=== PATIENT | female | born 1955 | race Caucasian/White ===

== ENCOUNTER 2020-09-08 13:30 | Inpatient (IN) | payer OTHER, BC ==
--- NOTE | 2020-09-08 14:31 | RAD REPORT ---
EXAM DESCRIPTION: RAD - Chest Single View - 09/08/2020 2:22 pm CLINICAL HISTORY: CHEST PAIN COMPARISON: None TECHNIQUE: AP portable chest image was obtained 09/08/2020 2:22 pm . FINDINGS: Lungs are clear. Heart and vasculature are normal. No measurable pleural effusion and no p neumothorax. No acute bony abnormality seen. No acute aortic findings suspected. IMPRESSION: No acute cardiopulmonary process.
[2020-09-08 14:33] LABS: Absolute Lymphocytes (CBC) 1.1 K/uL (0.7-4.9); Basophils % 0.3 % (0-1.3); Hematocrit 41.4 % (36.0-45.0); Lymphocytes % 11.9 % (15.3-44.8); RBC Red Blood Cell Count 4.52 M/uL (3.86-4.86)
[2020-09-08] MEDS ORDERED: NA CHLORIDE 0.9% 1,000 ML ONE (14:55)
[2020-09-08] MEDS ORDERED: ONDANSETRON 4 MG/2 ML VIAL ONE ×2 (14:55→16:04)
[2020-09-08] MEDS ORDERED: DIAZEPAM 10 MG/2 ML INJ SYRINGE ONE (14:55)
[2020-09-08] MEDS ORDERED: FAMOTIDINE 20 MG/2 ML VIAL IV ONE (14:55)
[2020-09-08 14:56] LABS: ALT/SGPT 29 U/L (12-78); Albumin 3.8 g/dL (3.4-5.0); Alkaline Phosphatase 58 U/L (45-117); BUN Blood Urea Nitrogen 22 mg/dL (7-18); Bicarbonate 25 mmol/L (21-32); Bilirubin Direct < 0.1 mg/dL (0-0.2); Bilirubin Total 0.4 mg/dL (0.2-1.0); Glucose Level 141 mg/dL (74-106); NT PRO-BNP 484 pg/mL (<125); Protein, Total 7.6 g/dL (6.4-8.2); Sodium Level 138 mmol/L (136-145); Troponin (Emerg Dept Use Only) 0.13 ng/mL (0.0-0.045)
[2020-09-08 14:58] LABS: AST/SGOT 22 U/L (15-37); Magnesium 2.1 mg/dL (1.8-2.4); Potassium 4.3 mmol/L (3.5-5.1)
[2020-09-08 15:09] LABS: Lipase 115 U/L (73-393)
--- NOTE | 2020-09-08 15:23 | RAD REPORT ---
EXAM DESCRIPTION: CT - Head Brain Wo Cont - 09/08/2020 3:04 pm CLINICAL HISTORY: DIZZINESS COMPARISON: No comparisons TECHNIQUE: Axial 5 mm thick images of the head were obtained without IV contrast. All CT scans are performed using dose optimization technique as appropriate and may include automated exposure control or mA/KV adjustment according to patient size. FINDINGS: No intracranial hemorrhage, mass, edema or shift of mid-line structures. No acute infarcti on changes seen. No abnormal extra-axial fluid collections. Ventricles are normal. Prominent perivas cular space noted on the left. Mastoid air cells and visualized portions of the paranasal sinuses are clear. No globe or orbital co ntent abnormality. No acute bony findings. IMPRESSION: Negative non-contrast CT head examination.
[2020-09-08] MEDS ORDERED: MECLIZINE HCL 12.5 MG TAB ONE (16:03)
[2020-09-08] MEDS ORDERED: MORPHINE 2 MG/ML SYR ONE (16:03)
[2020-09-08] MEDS ORDERED: ASPIRIN 81 MG CHEWABLE TABLET ONE (16:03)
[2020-09-08 16:07] LABS: Blood Morphology Comment NOT SEEN (NOT SEEN); Platelet Estimate ADEQ; White Blood Cell Scan OK (OK)
--- NOTE | 2020-09-08 16:41 | ER ---
Nurse's Notes [facility] Name: Suzanne Anaya Age: 65 yrs Sex: Female : 1955 Arrival Date: 09/08/2020 Time: 13:34 Bed 25 Private MD: Diagnosis: Subsequent non-ST elevation (NSTEMI) myocardial infarction;Dizziness and giddiness Presentation: 09/08 13:44 Chief complaint: Patient states: i am so dizzy and i am throwing up. and my chest tw2 hurts. started 2 hours ago. Coronavirus screen: nausea, vomiting. Client presents with at least one sign or symptom that may indicate coronavirus-19. Standard/surgical mask placed on the client. Provider contacted for isolation considerations. Ebola Screen: Patient denies travel to an Ebola-affected area in the 21 days before illness onset. Initial Sepsis Screen: Does the patient meet any 2 criteria? No. Patient's initial sepsis screen is negative. Does the patient have a suspected source of infection? No. Patient's initial sepsis screen is negative. Risk Assessment: Do you want to hurt yourself or someone else? Patient reports no desire to harm self or others. Onset of symptoms was September 08, 2020. 13:44 Method Of Arrival: Wheelchair tw2 13:44 Acuity: ALFREDO 3 tw2 Triage Assessment: 13:46 General: Appears uncomfortable, Behavior is calm, cooperative, appropriate for age. tw2 Pain: Complains of pain in chest. Cardiovascular: Reports chest pain. GI: Reports nausea. Historical: - Allergies: 13:46 No Known Allergies; tw2 - Immunization history:: Client reports receiving the 2nd dose of the Covid vaccine. - Social history:: Smoking status: Reported history of juuling and/or vaping. Screenin:53 Abuse screen: Denies threats or abuse. Nutritional screening: No deficits noted. tw2 Tuberculosis screening: No symptoms or risk factors identified. Fall Risk Secondary diagnosis (15 points) c/o dizziness. Assessment: 13:53 Neuro: Reports dizziness. GI: Pt is actively vomiting. tw2 14:50 General: Appears uncomfortable, Behavior is calm, cooperative, appropriate for age. tr6 Pain: Complains of pain in midsternal CP. Neuro: Reports dizziness. Cardiovascular: Reports chest pain. Respiratory: No deficits noted. : No deficits noted. EENT: No deficits noted. Derm: No deficits noted. Musculoskeletal: No deficits noted. 18:43 Reassessment: Patient and/or family updated on plan of care and expected duration. Pain ap3 level reassessed. Patient is alert, oriented x 3, equal unlabored respirations, skin warm/dry/pink. patient provided with a sandwich, chip and water. Vital Signs: 13:44 BP 159 / 92; Pulse 56; Resp 17; Temp 97.9(O); Pulse Ox 98% on R/A; tw2 14:40 BP 148 / 77; Pulse 48; Resp 18; Pulse Ox 98% on R/A; tr6 15:27 BP 119 / 58; Pulse 50; Pulse Ox 100% on R/A; ap3 15:48 Weight 74.84 kg; ap3 18:44 BP 118 / 73; Pulse 52; Resp 12; Pulse Ox 100% on R/A; ap3 20:02 BP 129 / 74; Pulse 68; Resp 19; Pulse Ox 98% on R/A; ap3 ED Course: 13:34 Patient arrived in ED. mr 13:45 Triage completed. tw2 13:45 Arm band placed on. tw2 13:47 Natanael Valdivia PA is PHCP. cp 13:47 Natanael Haney MD is Attending Physician. cp 13:54 Bed in low position. Call light in reach. Adult w/ patient. pt in Exam room 11 at this tw2 time. 14:22 Kareen Bruno, RN is Primary Nurse. tr6 14:22 XRAY Chest (1 view) In Process Unspecified. EDMS 14:32 Inserted saline lock: 20 gauge in left wrist, using aseptic technique. Blood collected. iw 15:04 CT Head Brain wo Cont In Process Unspecified. EDMS 16:25 Brain Wo Cont In Process Unspecified. EDMS 16:41 Santo Granados is Hospitalizing Provider. cp 20:25 No provider procedures requiring assistance completed. Patient admitted, IV remains in ap3 place. Administered Medications: 14:45 Drug: NS 0.9% 500 ml Route: IV; Rate: bolus; Site: right hand; zb 21:29 Follow up: IV Status: Completed infusion ap3 14:45 Drug: Diazepam 2 mg Route: IVP; Site: left hand; zb 15:49 Follow up: Response: No adverse reaction ap3 14:46 Drug: Zofran (Ondansetron) 4 mg Route: IVP; Site: left hand; zb 15:49 Follow up: Response: No adverse reaction ap3 14:46 Drug: Pepcid (famotidine) 20 mg Route: IVP; Site: left hand; zb 15:50 Follow up: Response: No adverse reaction ap3 14:46 Drug: NS 0.9% 500 ml Route: IV; Rate: 125 ml/hr; Site: left hand; zb 21:29 Follow up: IV Status: Infusion continued upon admission ap3 15:48 Drug: Aspirin Chewable Tablet 324 mg Route: PO; ap3 17:57 Follow up: Response: No adverse reaction ap3 15:48 Drug: Meclizine 25 mg Route: PO; ap3 17:57 Follow up: Response: No adverse reaction ap3 15:48 Drug: Zofran (Ondansetron) 4 mg Route: IVP; Site: left antecubital; ap3 17:57 Follow up: Response: No adverse reaction ap3 16:42 Drug: Lovenox (enoxaparin) 1 mg/kg Route: Sub-Q; Site: abdomen; ap3 17:57 Follow up: Response: No adverse reaction ap3 16:42 Drug: morphine 2 mg Route: IVP; Site: left hand; ap3 17:57 Follow up: Response: Pain is decreased ap3 Outcome: 16:41 Decision to Hospitalize by Provider. cp 20:25 Admitted to Med/surg accompanied by tech, via stretcher, room 221, with chart, Report ap3 called to YURI Dozier 20:25 Condition: good 20:25 Discharge instructions given to patient, Instructed on the need for admit, Demonstrated understanding of instructions. 21:28 Patient left the ED. ap3 Signatures: Dispatcher [facility] EDTN GarciaSuzanne mr Mirella Rodriguez RN Natanael Manriquez PA PA cp Sabrina Miller RN RN tw2 Raisa Nobles RN RN ap3 Elva Olivares RN RN zb Kareen Bruno RN RN tr6 Corrections: (The following items were deleted from the chart) 14:45 14:45 Diazepam 2 mg IVP in right hand zb zb
--- NOTE | 2020-09-08 16:41 | EDPHYS ---
Physician Documentation [facility] Name: Suzanne Anaya Age: 65 yrs Sex: Female : 1955 Arrival Date: 09/08/2020 Time: 13:34 Bed 25 Private MD: NELSON Physician Natanael Haney HPI: 09/08 13:55 This 65 yrs old Female presents to ER via Wheelchair with complaints of cp Vomiting, Nausea, Chest Tightness. 13:55 The patient or guardian reports chest pain that is located primarily in the anterior cp chest wall, bilaterally. 13:55 Onset: 2 hour(s) ago. The patient presents to the emergency department with nausea, cp with "dry heaves", vomiting, that is continuous. Onset: The symptoms/episode began/occurred suddenly. Possible causes: unknown. The patient presents with dizziness, feeling faint, lightheadedness, sense of spinning. Associated signs and symptoms: Pertinent negatives: abdominal pain, combativeness, confusion, shortness of breath, syncope. Historical: - Allergies: 13:46 No Known Allergies; tw2 - Immunization history:: Client reports receiving the 2nd dose of the Covid vaccine. - Social history:: Smoking status: Reported history of juuling and/or vaping. ROS: 14:00 Constitutional: Negative for body aches, chills, fever, poor PO intake. cp 14:00 Eyes: Positive for blurry vision, Negative for pain, redness, vision loss. cp 14:00 ENT: Negative for ear pain, sore throat, difficulty swallowing, difficulty handling secretions. 14:00 Cardiovascular: Positive for chest pain, Negative for edema, palpitations. 14:00 Respiratory: Negative for cough, shortness of breath, wheezing. 14:00 Abdomen/GI: Positive for nausea and vomiting, Negative for abdominal pain, diarrhea, constipation, hematemesis, black/tarry stool, rectal bleeding. 14:00 Back: Negative for radiated pain. 14:00 Skin: Negative for rash. 14:00 Neuro: Positive for dizziness, Negative for altered mental status, headache, numbness, syncope, weakness. 14:00 All other systems are negative. Exam: 14:05 Constitutional: The patient appears alert, awake, non-diaphoretic, non-toxic, well cp developed, well nourished, in obvious distress, mildly distressed. 14:05 Head/Face: Normocephalic, atraumatic. cp 14:05 Eyes: Periorbital structures: appear normal, Pupils: equal, round, and reactive to light and accomodation, Extraocular movements: intact throughout, Conjunctiva: normal, no exudate, no injection, Sclera: no appreciated abnormality, Lids and lashes: appear normal, bilaterally. 14:05 ENT: External ear(s): are unremarkable, Ear canal(s): are normal, clear, TM's: bulging, is not appreciated, bilaterally, dullness, bilaterally, erythema, is not appreciated, bilaterally, Nose: is normal, Mouth: is normal, Posterior pharynx: Airway: no evidence of obstruction, patent. 14:05 Neck: ROM/movement: is normal, is supple, without pain, no range of motions limitations, no meningismus. 14:05 Chest/axilla: Inspection: normal, Palpation: is normal, no crepitus, no tenderness. 14:05 Cardiovascular: Rate: bradycardic, Rhythm: regular, Heart sounds: murmur, not appreciated, Edema: is not appreciated, JVD: is not appreciated. 14:05 Respiratory: the patient does not display signs of respiratory distress, Respirations: normal, no use of accessory muscles, no retractions, labored breathing, is not present, Breath sounds: are clear throughout, no decreased breath sounds, no stridor, no wheezing. 14:05 Abdomen/GI: Inspection: abdomen appears normal, Bowel sounds: active, all quadrants, Palpation: abdomen is soft and non-tender, in all quadrants. 14:05 Back: pain, is absent, ROM is normal. 14:05 Neuro: Orientation: to person, place \\T\\ time. Mentation: is normal, Cerebellar function: Romberg testing is negative, normal finger to nose testing, Motor: moves all fours, strength is normal, Sensation: is normal. 14:18 ECG was reviewed by the Attending Physician. cp Vital Signs: 13:44 BP 159 / 92; Pulse 56; Resp 17; Temp 97.9(O); Pulse Ox 98% on R/A; tw2 14:40 BP 148 / 77; Pulse 48; Resp 18; Pulse Ox 98% on R/A; tr6 15:27 BP 119 / 58; Pulse 50; Pulse Ox 100% on R/A; ap3 15:48 Weight 74.84 kg; ap3 18:44 BP 118 / 73; Pulse 52; Resp 12; Pulse Ox 100% on R/A; ap3 20:02 BP 129 / 74; Pulse 68; Resp 19; Pulse Ox 98% on R/A; ap3 MDM: 14:00 Differential diagnosis: abnormal EKG, acute myocardial infarction, gastritis, cp cholecystitis, viral gastroenteritis, gastroenteritis, pancreatitis, pulmonary embolus, stable angina, CVA. 14:05 Patient medically screened. 16:45 Physician consultation: Santo Granados was contacted at 16:30, regarding admission, to the telemetry unit. patient's condition. 17:00 Data reviewed: vital signs, nurses notes, lab test result(s), EKG, radiologic studies, cp CT scan, MRI, plain films. 17:00 The patient was given aspirin in the Emergency Department. Test interpretation: by ED cp physician or midlevel provider: ECG, plain radiologic studies. Counseling: I had a detailed discussion with the patient and/or guardian regarding: the historical points, exam findings, and any diagnostic results supporting the discharge/admit diagnosis, lab results, the need for further work-up and treatment in the hospital. 09/08 13:47 Order name: Basic Metabolic Panel; Complete Time: 15:30 tw2 09/08 13:47 Order name: CBC with Diff; Complete Time: 16:38 tw2 09/08 13:47 Order name: LFT's; Complete Time: 15:30 tw2 09/08 13:47 Order name: Magnesium; Complete Time: 15:30 tw2 09/08 13:47 Order name: NT PRO-BNP; Complete Time: 15:30 tw2 09/08 13:47 Order name: PT-INR; Complete Time: 15:30 tw2 09/08 13:47 Order name: Troponin (emerg Dept Use Only); Complete Time: 15:30 tw2 09/08 13:53 Order name: Lipase 09/08 14:25 Order name: Glucose, Ancillary Testing; Complete Time: 15:30 EDMS 09/08 15:03 Order name: Lipase; Complete Time: 15:30 EDMS 09/08 16:07 Order name: CBC Smear Scan; Complete Time: 16:38 EDMS 09/08 18:28 Order name: SARS-COV-2 RT PCR EDMS 09/08 13:47 Order name: XRAY Chest (1 view); Complete Time: 15:30 tw2 09/08 13:47 Order name: EKG; Complete Time: 13:48 tw2 09/08 13:47 Order name: Cardiac monitoring; Complete Time: 14:26 tw2 09/08 13:53 Order name: CT Head Brain wo Cont; Complete Time: 15:30 09/08 15:54 Order name: Brain Wo Cont; Complete Time: 17:00 EDMS 09/08 17:00 Interpretation: Report reviewed. 09/08 13:47 Order name: EKG - Nurse/Tech; Complete Time: 14:25 tw2 09/08 13:47 Order name: IV Saline Lock; Complete Time: 14:25 tw2 09/08 13:47 Order name: Labs collected and sent; Complete Time: 14:25 tw2 09/08 13:47 Order name: O2 Per Protocol; Complete Time: 13:53 tw2 09/08 13:47 Order name: O2 Sat Monitoring; Complete Time: 13:53 tw2 EC:18 Rate is 55 beats/min. Rhythm is regular. OH interval is normal. QRS interval is normal. cp QT interval is normal. T waves are Inverted in leads aVL, V3. Interpreted by me. Reviewed by me. Administered Medications: 14:45 Drug: NS 0.9% 500 ml Route: IV; Rate: bolus; Site: right hand; zb 21:29 Follow up: IV Status: Completed infusion ap3 14:45 Drug: Diazepam 2 mg Route: IVP; Site: left hand; zb 15:49 Follow up: Response: No adverse reaction ap3 14:46 Drug: Zofran (Ondansetron) 4 mg Route: IVP; Site: left hand; zb 15:49 Follow up: Response: No adverse reaction ap3 14:46 Drug: Pepcid (famotidine) 20 mg Route: IVP; Site: left hand; zb 15:50 Follow up: Response: No adverse reaction ap3 14:46 Drug: NS 0.9% 500 ml Route: IV; Rate: 125 ml/hr; Site: left hand; zb 21:29 Follow up: IV Status: Infusion continued upon admission ap3 15:48 Drug: Aspirin Chewable Tablet 324 mg Route: PO; ap3 17:57 Follow up: Response: No adverse reaction ap3 15:48 Drug: Meclizine 25 mg Route: PO; ap3 17:57 Follow up: Response: No adverse reaction ap3 15:48 Drug: Zofran (Ondansetron) 4 mg Route: IVP; Site: left antecubital; ap3 17:57 Follow up: Response: No adverse reaction ap3 16:42 Drug: Lovenox (enoxaparin) 1 mg/kg Route: Sub-Q; Site: abdomen; ap3 17:57 Follow up: Response: No adverse reaction ap3 16:42 Drug: morphine 2 mg Route: IVP; Site: left hand; ap3 17:57 Follow up: Response: Pain is decreased ap3 Disposition: 17:15 Chart complete. cp Disposition Summary: 09/08/20 16:41 Hospitalization Ordered Hospitalization Status: Inpatient Admission cp Provider: Santo Granados cp Location: Telemetry/MedSurg (Inpatient) cp Condition: Stable cp Problem: new cp Symptoms: have improved cp Bed/Room Type: Standard cp Room Assignment: 221(09/08/20 20:07) mw Diagnosis - Subsequent non-ST elevation (NSTEMI) myocardial infarction cp - Dizziness and giddiness cp Forms: - Medication Reconciliation Form cp - SBAR form cp Addendum: 09/11/2020 06:49 Co-signature as Attending Physician, Natanael Haney MD I agree with the assessment and c oleary plan of care. Signatures: Dispatcher [employer] EDMS Brandie Craft RN RN mw Anderson, Corey, MD MD cha Page, Corey, PA PA cp Sabrina Miller RN RN tw2 Raisa Nobles RN RN ap3 Elva Olivares RN RN zb Corrections: (The following items were deleted from the chart) 09/08 15:04 13:54 Lipase ordered. EDMS EDMS 15:54 15:39 MR STROKE PROTOCOL+MRI.RAD.BRZ ordered. EDMS EDMS 17:35 15:38 CORONAVIRUS+MR.LAB.BRZ ordered. EDMS EDMS 20:07 16:41 cp mw
--- NOTE | 2020-09-08 16:52 | RAD REPORT ---
EXAM DESCRIPTION: MRI - Brain Wo Cont - 09/08/2020 4:26 pm CLINICAL HISTORY: DIZZINESS, visual changes, history of CVA COMPARISON: <Comparisons> TECHNIQUE: Sagittal T1-weighted images were obtained along with axial PD, heavily T2-weighted and T2 -FLAIR images. Axial DWI and ADC mapping sequences were also obtained along with coronal heavily T2-w eighted images. Coronal T2 hemo sequence obtained FINDINGS: No intracranial hemorrhage, mass or acute infarction. There is no edema or shift of midlin e structures. No extra-axial fluid collections. Alvarado-matter/white matter junction is preserved. Signa l voids are seen as a normal finding in the major intracranial vessels. No measurable atrophy or chronic ischemic changes seen. Ventricles are normal size. There is a normal wall perivascular space near the left basal ganglia. Mastoid air cells and paranasal sinuses are clear. No globe or orbital content abnormality. No sella or supra sella abnormality. IMPRESSION: Negative non-contrast MRI of the Brain for acute or emergent finding.
[2020-09-08] MEDS ORDERED: ENOXAPARIN 80 MG/0.8 ML SQ ONE (17:00)
--- NOTE | 2020-09-08 18:58 | P.HP ---
Certification for Inpatient Patient admitted to: Observation With expected LOS: <2 Midnights Practitioner: I am a practitioner with admitting privileges, knowledge of patient current condition, hospital course, and medical plan of care. Services: Services provided to patient in accordance with Admission requirements found in Title 42 Section 412.3 of the Code of Federal Regulations Patient History Date of Service: 09/08/20 Reason for admission: Vertigo, elevated troponin History of Present Illness: 65-year-old woman with a history of hypertension and hyperlipidemia presented to the emergency department with a complaint of sudden onset of vertigo. Patient reports experiencing severe vertigo which all care about she was washing her hair in the sink. It started when she lifted up her head from the sink, stated she almost fell, the room was spinning, symptoms associated with nausea and vomits. She stated she vomited a couple of times. She also had diplopia. Her initial troponin in the ED was mildly elevated. EKG demonstrated sinus rhythm with nonspecific ST-T changes. MRI of the brain done in the ED negative for acute CVA. Patient still with vertigo but stated it is better today than before. She is hospitalized for further evaluation and management. - Past Medical/Surgical History -: Hypertension -: Hyperlipidemia - Social History Smoking Status: Current every day smoker Alcohol use: No CD- Drugs: No Place of Residence: Home Review of Systems Other: Patient denies any headache. She endorsed mild chest pain. She denied any shortness of breath. She denied any limb weakness. Except as documented, all other systems reviewed and negative. Physical Examination - Physical Exam General: Alert, In no apparent distress, Oriented x3 HEENT: Mucous membr. moist/pink, EOMI (No nystagmus), Sclerae nonicteric Neck: 2+ carotid pulse no bruit, JVD not distended, No Thyromegaly Respiratory: Clear to auscultation bilaterally, Normal air movement Cardiovascular: No edema, Regular rate/rhythm, Normal S1 S2, No murmurs Capillary refill: <2 Seconds Gastrointestinal: Normal bowel sounds, Soft and benign, Non-distended, No t enderness Musculoskeletal: No swelling, No tenderness Integumentary: No rashes, No erythema Neurological: Normal speech, Normal strength at 5/5 x4 extr, Cranial nerves 3-12 intact, Normal reflexes 2+ Lymphatics: No axilla or inguinal lymphadenopathy - Studies Laboratory Data (last 24 hrs) 09/08/20 14:00: PT 11.5, INR 1.00 09/08/20 14:00: WBC 8.90, Hgb 13.7, Hct 41.4, Plt Count 224 09/08/20 14:00: Sodium 138, Potassium 4.3, BUN 22 H, Creatinine 0.73, Glucose 141 H, Magnesium 2.1, Total Bilirubin 0.4, AST 22, ALT 29, Alkaline Phosphatase 58, Lipase 115 09/08/20 13:53: Lipase Cancelled Assessment and Plan - Problems (Diagnosis) (1) Vertigo Current Visit: Yes Status: Acute (2) Elevated troponin Current Visit: Yes Status: Acute (3) Chest pain Current Visit: Yes Status: Acute (4) Hypertension Current Visit: Yes Status: Acute (5) Hyperlipidemia Current Visit: Yes Status: Acute - Plan Place under observation. Continue to trend troponin. I suspect benign positional vertigo given that her symptoms were precipitated by change in head position. MRI of the brain is negative for acute CVA. Obtain echocardiogram. Full-dose Lovenox depending on how troponin trend. Consult PT for vestibular rehab. Supportive measures with IV Ativan, meclizine, Pepcid. Antiemetics as needed. - Advance Directives Does patient have a Living Will: No Does patient have a Durable POA for Healthcare: No
[2020-09-08] MEDS ORDERED: LORazepam 2 MG/ML VIAL IV PRN (20:55)
[2020-09-08] MEDS ORDERED: NITROGLYCERIN 0.4 MG/TAB SL PRN (20:55)
[2020-09-08] MEDS: FAMOTIDINE 20 MG/2 ML VIAL IV SCH (21:39)
[2020-09-08] MEDS: NA CHLORIDE 0.9% 1,000 ML IV SCH (21:39)
[2020-09-08] MEDS: MECLIZINE HCL 12.5 MG TAB PO SCH (21:39)
[2020-09-08] MEDS: ONDANSETRON 4 MG/2 ML VIAL IV PRN (21:55)
[2020-09-08 23:21] VITALS: BMI 25.0
[2020-09-09 04:14] LABS: Basophils % 0.7 % (0-1.3); Lymphocytes % 26.6 % (15.3-44.8); RBC Red Blood Cell Count 3.63 M/uL (3.86-4.86)
[2020-09-09 04:25] LABS: Bilirubin Total 0.1 mg/dL (0.2-1.0); Magnesium 2.1 mg/dL (1.8-2.4); Potassium 3.6 mmol/L (3.5-5.1); Protein, Total 5.9 g/dL (6.4-8.2); Thyroid Stimulating Hormone 0.667 uIU/mL (0.360-3.740)
[2020-09-09] MEDS: ONDANSETRON 4 MG/2 ML VIAL IV PRN (04:35)
[2020-09-09] MEDS: NA CHLORIDE 0.9% 1,000 ML IV SCH ×2 (04:38→17:24)
[2020-09-09] MEDS ORDERED: PNEUMOCOCCAL VACCINE 0.5 ML IMVAC ONE (06:00)
[2020-09-09] MEDS: FAMOTIDINE 20 MG/2 ML VIAL IV SCH (08:14)
[2020-09-09] MEDS: MECLIZINE HCL 12.5 MG TAB PO SCH ×3 (08:15→20:44)
[2020-09-09] MEDS: ASPIRIN EC 81 MG TAB PO SCH (08:15)
[2020-09-09] MEDS ORDERED: ENOXAPARIN 40 MG/0.4 ML SQ SCH (09:00)
[2020-09-09] MEDS ORDERED: POTASSIUM CL SA 10 MEQ TAB PO ONE (09:00)
--- NOTE | 2020-09-09 16:07 | P.PN ---
Subjective Date of Service: 09/09/20 Chief Complaint: Vertigo, elevated troponin Patient states her vertigo is much better. She has no chest pain. Troponin trended up to 0.7. Physical Examination - Vital Signs Temperature: 97.6 F Blood Pressure: 120/57 Pulse: 56 Respirations: 18 Pulse Ox (%): 96 - Physical Exam General: Alert, In no apparent distress, Oriented x3 HEENT: Mucous membr. moist/pink Neck: JVD not distended Respiratory: Clear to auscultation bilaterally, Normal air movement Cardiovascular: No edema, Regular rate/rhythm, Normal S1 S2 Gastrointestinal: Soft and benign, Non-distended Musculoskeletal: No swelling Integumentary: No rashes Neurological: Normal strength at 5/5 x4 extr, Cranial nerves 3-12 intact - Studies Laboratory Data (last 24 hrs) 09/08/20 14:00: WBC 8.90, Hgb 13.7, Hct 41.4, Plt Count 224 Assessment And Plan - Current Problems (Diagnosis) (1) Vertigo Current Visit: Yes Status: Acute (2) Chest pain Current Visit: Yes Status: Acute (3) Hypertension Current Visit: Yes Status: Acute (4) Hyperlipidemia Current Visit: Yes Status: Acute (5) NSTEMI (non-ST elevated myocardial infarction) Current Visit: Yes Status: Acute - Plan Troponin trended up to 0.7. Case discussed with cardiology-Dr. Oliver. Patient diagnosed with NSTEMI. Start full-dose Lovenox, continue aspirin. Dr. Oliver plan to do cardiac catheterization on Friday. Obtain echocardiogram. I suspect benign positional vertigo given that her symptoms were precipitated by change in head position. MRI of the brain is negative for acute CVA. Vertigo improved Awaiting PT evaluation Continue supportive measures with IV Ativan, meclizine, Pepcid. Antiemetics as needed.
[2020-09-09] MEDS ORDERED: [UNRECOGNIZED DRUG - OTHER] PO SCH (16:15)
[2020-09-09] MEDS ORDERED: DIPHENHYDRAMINE 50 MG/ML VIAL IV ONE (17:07)
[2020-09-09] MEDS ORDERED: FAMOTIDINE 20 MG/2 ML VIAL IV ONE (18:00)
[2020-09-09 20:14] LABS: Urine Appearance CLEAR (Clear); Urine Bilirubin NEGATIVE (Negative); Urine Blood NEGATIVE (Negative); Urine Color YELLOW (Yellow); Urine Glucose NEGATIVE (Negative); Urine Protein NEGATIVE (Negative); Urine Urobilinogen 0.2 mg/dL (0.2-1.0)
[2020-09-09 20:42] LABS: Urine Microscopic Reflex NO UMIC
[2020-09-09] MEDS: [UNRECOGNIZED DRUG - OTHER] PO SCH (20:43)
[2020-09-09] MEDS: TRAZODONE 50 MG TABLET PO SCH (20:43)
[2020-09-09] MEDS: GABAPENTIN 300 MG CAP PO SCH (20:44)
[2020-09-09] MEDS: SERTRALINE HCL 100 MG TAB PO SCH (20:45)
[2020-09-09] MEDS: ATORVASTATIN 20 MG TAB PO SCH (20:45)
[2020-09-09] MEDS: ENOXAPARIN 80 MG/0.8 ML SQ SCH (20:50)
[2020-09-10] MEDS: NA CHLORIDE 0.9% 1,000 ML IV SCH ×3 (03:37→22:11)
[2020-09-10 06:53] LABS: Absolute Lymphocytes (CBC) 1.7 K/uL (0.7-4.9); Basophils % 0.6 % (0-1.3); Hematocrit 35.5 % (36.0-45.0); Lymphocytes % 33.4 % (15.3-44.8); MPV 7.9 fL (7.6-11.3); RBC Red Blood Cell Count 3.86 M/uL (3.86-4.86)
[2020-09-10 07:01] LABS: Potassium 3.8 mmol/L (3.5-5.1)
[2020-09-10] MEDS ORDERED: POTASSIUM CL SA 10 MEQ TAB PO ONE (09:00)
[2020-09-10] MEDS: MECLIZINE HCL 12.5 MG TAB PO SCH ×3 (09:00→20:34)
[2020-09-10] MEDS: ASPIRIN EC 81 MG TAB PO SCH (09:00)
[2020-09-10] MEDS: FAMOTIDINE 20 MG/2 ML VIAL IV SCH ×2 (09:01→20:33)
[2020-09-10] MEDS: ENOXAPARIN 80 MG/0.8 ML SQ SCH ×2 (09:01→20:33)
[2020-09-10] MEDS ORDERED: MINERAL OIL 30 ML UCUP PO ONE (13:00)
--- NOTE | 2020-09-10 15:07 | P.PN ---
Subjective Date of Service: 09/10/20 Chief Complaint: Vertigo, elevated troponin Patient still complaining of vertigo but states it is much better. She has no chest pain. Physical Examination - Vital Signs Temperature: 96.9 F Blood Pressure: 159/68 Pulse: 53 Respirations: 17 Pulse Ox (%): 97 - Physical Exam General: In no apparent distress, Oriented x3 HEENT: Mucous membr. moist/pink Neck: JVD not distended Respiratory: Clear to auscultation bilaterally, Normal air movement Cardiovascular: No edema, Regular rate/rhythm, Normal S1 S2 Gastrointestinal: Soft and benign, Non-distended, No tenderness Musculoskeletal: No swelling Integumentary: No rashes Neurological: Normal strength at 5/5 x4 extr Assessment And Plan - Current Problems (Diagnosis) (1) Vertigo Current Visit: Yes Status: Acute (2) Chest pain Current Visit: Yes Status: Acute (3) Hypertension Current Visit: Yes Status: Acute (4) Hyperlipidemia Current Visit: Yes Status: Acute (5) NSTEMI (non-ST elevated myocardial infarction) Current Visit: Yes Status: Acute - Plan Troponin trended up to 0.7. Patient diagnosed with NSTEMI. Hold evening Lovenox dose. continue aspirin. Dr. Oliver plan to do cardiac catheterization tomorrow Echocardiogram requested. I suspect benign positional vertigo given that her symptoms were precipitated by change in head position. Differential diagnosis include wax in ears and Meniere's disease MRI of the brain is negative for acute CVA. Vertigo improved Vestibular rehab Continue supportive measures with IV Ativan, meclizine, Pepcid. Antiemetics as needed.
--- NOTE | 2020-09-10 17:35 | CON ---
Date of Consultation: 09/10/2020 Reason For Consultation: Elevated troponin. History Of Present Illness: A 65-year-old female with long-standing history of smoking. No major me dical problems other than hypertension controlled with medication, dyslipidemia, presented after an e pisode of dizziness, nausea and vomiting with some chest pressure that has completely resolved. Sinc e admission to the hospital, she has been asymptomatic. She had a workup that ruled out a stroke as she had some vertigo symptoms as well; however, troponin was elevated at 0.7 and then trending down. Denies having any other complaints now. Past Medical History: As outlined above in HPI. Medications: Refer to reconciliation sheet for detailed list. Allergies: NO KNOWN DRUG ALLERGIES. Social History: She is active smoker. Does not drink or use drugs. Review of Systems: All systems reviewed were negative except for mentioned in the HPI. Physical Examination: Vital Signs: Temperature is 96.9, pulse 83, breathing at 17, blood pressure 159/68, saturating 97%. General: Pleasant middle-aged female, in no apparent distress. Head and Neck: Pupils are equal, reactive to light. Intact eye movements. No JVD. No cervical lym phadenopathy. Neck: Supple. Thyroid is not enlarged. Lungs: Clear to auscultation bilaterally. No rhonchi, rales, or crackles. No accessory muscle use. Heart: Regular rate and rhythm. No extra sounds. Abdomen: Soft, nontender. Bowel sounds positive. No organomegaly. No masses or hernia. No rigidi ty or rebound. Extremities: No edema, clubbing, or cyanosis. Intact pulses. Skin: No rash noted. Neurologic: Alert, awake, oriented x3. No acute focal deficits appreciated. Investigations: Troponin peaked at 0.72 and now 0.41. Creatinine 0.83 and hemoglobin is 12, white b lood cell count is 5000. Assessment And Recommendations: Non-ST elevation myocardial infarction. Keep n.p.o. past midnight f or coronary angiogram tomorrow morning. I discussed already the case with the hospitalist yesterday and the patient is fully anticoagulated with Lovenox. Please hold the Lovenox after the dose of jayce ght and can give her Lovenox in the morning tomorrow anticipating coronary angiogram early afternoon tomorrow. Continue aspirin 81 mg and high-dose statin. Please obtain echocardiogram. Thank you for the consult. /RANDOLPH Voice ID: [id number] Report ID: [id number]
[2020-09-10] MEDS: TRAZODONE 50 MG TABLET PO SCH (20:34)
[2020-09-10] MEDS: ATORVASTATIN 20 MG TAB PO SCH (20:34)
[2020-09-10] MEDS: SERTRALINE HCL 100 MG TAB PO SCH (20:34)
[2020-09-10] MEDS: GABAPENTIN 300 MG CAP PO SCH (20:34)
[2020-09-10] MEDS: [UNRECOGNIZED DRUG - OTHER] PO SCH (20:45)
[2020-09-11] MEDS ORDERED: ACETAMINOPHEN 325 MG TABLET PO PRN (04:46)
[2020-09-11 06:18] LABS: Potassium 3.8 mmol/L (3.5-5.1)
[2020-09-11] MEDS: ASPIRIN EC 81 MG TAB PO SCH (08:14)
[2020-09-11] MEDS: MECLIZINE HCL 12.5 MG TAB PO SCH ×2 (08:14→14:00)
[2020-09-11] MEDS: FAMOTIDINE 20 MG/2 ML VIAL IV SCH (08:16)
[2020-09-11] MEDS: NA CHLORIDE 0.9% 1,000 ML IV SCH (08:53)
[2020-09-11] MEDS ORDERED: lisinopriL 20 MG TAB PO SCH (09:00)
[2020-09-11] MEDS ORDERED: hydroCHLOROthiazide 12.5 MG CAP PO SCH (09:00)
[2020-09-11] MEDS ORDERED: POTASSIUM CL SA 10 MEQ TAB PO ONE (09:00)
[2020-09-11] MEDS ORDERED: LIDOCAINE 1% 20 ML MDV ONE (12:11)
[2020-09-11] MEDS ORDERED: HEPA 1000U/500MLS 2,000 UNIT/1,000 ML BAG IV ONE (12:11)
--- NOTE | 2020-09-11 14:17 | ECHO ---
HEIGHT: 5 ft 8 in WEIGHT: 165 lb 0 oz DATE OF STUDY: 09/11/[address]: michelle cherry 2-DIMENSIONAL: YES M.MODE: YES DOPPLER: YES COLOR FLOW: YES TDS: NO PORTABLE: NO DEFINITY: NO BUBBLE STUDY: NO DIAGNOSIS: ELEVATED TROPONIN CARDIAC HISTORY: CATHERIZATION: NO SURGERY: NO PROSTHETIC VALVE: NO PACEMAKER: NO MEASUREMENTS (cm) DIASTOLIC (NORMALS) SYSTOLIC (NORMALS) IVSd 1.1 (0.6-1.2) LA Diam 3.7 (1.9-4.0) LVEF 64% LVIDd 5.1 (3.5-5.7) LVIDs 3.3 (2.0-3.5) %FS 35% LVPWd 1.1 (0.6-1.2) Ao Diam 2.9 (2.0-3.7) 2 DIMENSIONAL ASSESSMENT: RIGHT ATRIUM: NORMAL LEFT ATRIUM: NORMAL RIGHT VENTRICLE: NORMAL LEFT VENTRICLE: NORMAL TRICUSPID VALVE: NORMAL MITRAL VALVE: NORMAL PULMONIC VALVE: NORMAL AORTIC VALVE: NORMAL PERICARDIAL EFFUSION: NONE AORTIC ROOT: NORMAL LEFT VENTRICULAR WALL MOTION: NORMAL DOPPLER/COLOR FLOW: NORMAL COMMENTS: NORMAL 2D ECHOCARDIOGRAM WITH DOPPLER. NO EFFUSION. NO WAL MOTION ABNORMALITY. TECHNOLOGIST: Anastasiia DAMON
[2020-09-11] MEDS ORDERED: NA CHLORIDE 0.9% 500 ML ONE (14:32)
[2020-09-11] MEDS ORDERED: VERAPAMIL HCL 10 MG/4 ML VIAL IV ONE (15:29)
[2020-09-11] MEDS ORDERED: FENTANYL CITR 100 MCG/2 ML ONE (15:29)
[2020-09-11] MEDS ORDERED: ASPIRIN 325 MG TAB ONE (15:29)
[2020-09-11] MEDS ORDERED: MIDAZOLAM HCL 2 MG/2 ML INJ ONE (15:29)
[2020-09-11] MEDS ORDERED: CLOPIDOGREL 75 MG TABLET ONE (15:30)
[2020-09-11] MEDS ORDERED: TICAGRELOR 90 MG TABLET PO ONE (15:30)
[2020-09-11] MEDS ORDERED: ATROPINE SULF 1 MG/10 ML SYR IV ONE (15:30)
[2020-09-11] MEDS ORDERED: HEPARIN 5000 UNIT/ML 1 ML VIAL ONE (15:30)
--- NOTE | 2020-09-11 16:48 | OP ---
Date of Procedure: 09/11/2020 Surgeon: RADHA MOSS Procedures Performed: 1.Selective coronary angiogram. 2.Left heart catheterization. Access: Right femoral artery 6-Venezuelan closed with 6-Venezuelan Angio-Seal. Complications: None. Bleeding: Less than 10 mL. Description Of Procedure: After risks, benefits, and alternatives were explained, the patient agreed to the procedure and signed informed consent. The patient was brought to the cardiac catheterizatio n laboratory, prepped and draped in usual sterile fashion. Then, I accessed right femoral artery usi ng ultrasound guidance and fluoroscopy and placed a 6-Venezuelan [place] sheath and took a 6-Venezuelan JL4 catheter into the aortic root, engaged left main. Then, I took standard views and exchanged for 6-Fr ench JR4 catheter, engaged the right coronary artery and took standard views, and then with the same catheter crossed the aortic valve over the wire and recorded LVEDP and upon pullback, there was no gr adient. I removed the catheter and sheath and placed a 6-V[place]an Angio-Seal for closure with good hem ostasis. Findings: 1.Left main is large and short with no disease. 2.LAD; oqjnrmyr-iz-aulds size with luminal irregularities in the proximal portion, otherwise no sign ificant disease. All the diagonals are patent. 3.Left circumflex; large, codominant circulation with luminal irregularities and the OM1 branch is a small vessel with ostial 30% to 40% stenosis. 4.RCA; moderate-sized vessel with diffuse proximal to mid calcified stenosis about 30% to 40% at max with LALITO-3 flow. Conclusion: 1.Mild nonobstructive coronary artery disease. 2.LVEDP of 24 mmHg. Recommendation: Medical management. SR/MODL Voice ID: [id number] Report ID: [id number]
[2020-09-11 18:17] VITALS: BP 157/72; TEMP 98.1; O2SAT 98
--- NOTE | 2020-09-11 18:23 | P.DS ---
Admission Date: 09/09/20 Discharge Date: 09/11/20 Disposition: ROUTINE DISCHARGE Discharge Condition: FAIR Reason for Admission: Vertigo, elevated troponin - Problems (1) Vertigo Current Visit: Yes Status: Acute (2) Chest pain Current Visit: Yes Status: Acute (3) Hypertension Current Visit: Yes Status: Acute (4) Hyperlipidemia Current Visit: Yes Status: Acute (5) NSTEMI (non-ST elevated myocardial infarction) Current Visit: Yes Status: Acute Brief History of Present Illness: 65-year-old woman with a history of hypertension and hyperlipidemia presented to the emergency department with a complaint of sudden onset of vertigo. Patient reports experiencing severe vertigo which all care about she was washing her hair in the sink. It started when she lifted up her head from the sink, stated she almost fell, the room was spinning, symptoms associated with nausea and vomits. She stated she vomited a couple of times. She also had diplopia. Her initial troponin in the ED was mildly elevated. EKG demonstrated sinus rhythm with nonspecific ST-T changes. MRI of the brain done in the ED negative for acute CVA. Patient still with vertigo but stated it is better today than before. She was hospitalized for further evaluation and management. Hospital Course: Patient admitted to the medical floor, troponin trended up to 0.7. He was diagnosed with NSTEMI and treated with full-dose Lovenox. Patient seen and evaluated by cardiology who recommended cardiac catheterization. Cardiac cath revealed moderate coronary artery disease, no percutaneous intervention. Patient had dizziness which was managed supportively with Ativan, meclizine and Pepcid. Her dizziness is suspected to be related to BPPV or ear wax. Patient is discharged with aspirin, statins. Her bradycardia limit beta-ed use. Vital Signs/Physical Exam: Temp Pulse Resp BP Pulse Ox 97.1 F 50 16 159/75 H 97 09/11/20 12:00 09/11/20 16:50 09/11/20 16:50 09/11/20 16:50 09/11/20 12:00 General: Alert, In no apparent distress, Oriented x3 HEENT: Mucous membr. moist/pink Neck: JVD not distended Respiratory: Clear to auscultation bilaterally, Normal air movement Cardiovascular: No edema, Regular rate/rhythm, Normal S1 S2 Gastrointestinal: Soft and benign, Non-distended Musculoskeletal: No swelling Integumentary: No rashes Neurological: Normal gait, Normal speech, Normal strength at 5/5 x4 extr Laboratory Data at Discharge: WBC 5.00 K/uL (4.3-10.9) D 09/10/20 06:30 Hgb 12.0 g/dL (12.0-15.0) 09/10/20 06:30 Hct 35.5 % (36.0-45.0) L 09/10/20 06:30 Plt Count 207 K/uL (152-406) 09/10/20 06:30 PT 11.5 SECONDS (9.5-12.5) 09/08/20 14:00 INR 1.00 09/08/20 14:00 Sodium 145 mmol/L (136-145) 09/11/20 05:27 Potassium 3.8 mmol/L (3.5-5.1) 09/11/20 05:27 BUN 11 mg/dL (7-18) 09/11/20 05:27 Creatinine 0.67 mg/dL (0.55-1.3) 09/11/20 05:27 Glucose 99 mg/dL (74-106) 09/11/20 05:27 Phosphorus 3.0 mg/dL (2.5-4.9) 09/09/20 03:30 Magnesium 2.1 mg/dL (1.8-2.4) 09/09/20 03:30 Total Bilirubin 0.1 mg/dL (0.2-1.0) L 09/09/20 03:30 AST 10 U/L (15-37) L 09/09/20 03:30 ALT 20 U/L (12-78) 09/09/20 03:30 Alkaline Phosphatase 45 U/L (45-117) 09/09/20 03:30 Troponin I 0.41 ng/mL (0.0-0.045) H 09/09/20 03:30 Triglycerides 183 mg/dL (<150) H 09/09/20 03:30 Cholesterol 122 mg/dL (<200) 09/09/20 03:30 HDL Cholesterol 41 mg/dL (40-60) 09/09/20 03:30 Cholesterol/HDL Ratio 2.98 09/09/20 03:30 Lipase 115 U/L (73-393) 09/08/20 14:00 Home Medications: Gabapentin 600 mg PO BEDTIME 09/08/20 Restful Legs Am 2 tab PO SEECOM 09/08/20 Restful Legs Pm 2 tab PO BEDTIME 09/08/20 Sertraline [Zoloft*] 100 mg PO BEDTIME 09/08/20 Trazodone HCl 2 tab PO BEDTIME 09/08/20 hydrOXYzine HCL [Atarax*] 25 mg PO BEDTIME PRN 09/08/20 Lisinopril/Hydrochlorothiazide [Lisinopril-Hctz 20-12.5 mg Tab] 1 tab PO DAILY 09/09/20 Omeprazole [Prilosec] 40 mg PO DAILY 09/09/20 Aspirin [Aspirin EC] 81 mg PO DAILY #30 tablet. 09/11/20 Atorvastatin Calcium [Lipitor*] 20 mg PO BEDTIME #30 tab 09/11/20 Meclizine HCl 25 mg PO TID PRN #30 tablet 09/11/20 New Medications: Aspirin [Aspirin EC] 81 mg PO DAILY #30 tablet. Atorvastatin Calcium [Lipitor*] 20 mg PO BEDTIME #30 tab Meclizine HCl 25 mg PO TID PRN #30 tablet PRN Reason: Dizziness Diet: AHA Activity: Ad jennifer Followup: NONE,NONE [Primary Care Provider] - 1-2 Weeks Time spent managing pt's care (in minutes): 38
--- NOTE | 2020-09-11 20:03 | PN ---
Date of Progress Note: 09/11/2020 Subjective: Seen by bedside. She is doing well. No further chest pain. All other systems reviewed are negative. Physical Examination: Vital Signs: Reviewed. Head and Neck: Pupils are equal, reactive to light. Intact eye movements. No JVD. No cervical lym phadenopathy. Neck: Supple. Thyroid is not enlarged. Lungs: Clear to auscultation bilaterally. No rhonchi, wheezing, or crackles. No accessory muscle u se. Heart: Regular rate and rhythm. No extra sounds. Abdomen: Soft, nontender. Bowel sounds positive. No organomegaly. No masses or hernia. No rigidi ty or rebound. Extremities: No edema, clubbing, or cyanosis. Intact pulses. Skin: No rashes. Neurologic: Alert, awake, oriented x3. No acute focal deficits appreciated. Investigations: Left heart catheterization showed mild nonobstructive coronary artery disease. Assessment And Recommendations: Mild nonobstructive coronary artery disease by coronary angiogram wa s done today. Recommend lifestyle modification and aggressive risk factor management to quit smoking and start her on high-dose statin, Lipitor 40 mg or equivalent and baby aspirin. The patient can be released home from Cardiology standpoint to follow up as an outpatient. Thank you for allowing me to care for your patient. /JAMILAL Voice ID: [id number] Report ID: [id number]
== END 2020-09-11 19:20 | disposition home or self-care (01) | DRG 282 ==
LOC: ER 13:30 → INTOOBSV 18:39 → OBSVTOIN 18:39 → ERHOLD 18:39 → 2ND 20:26 → OBSVTOIN 09-09 16:15
PROVIDERS: ADMIT Internal Medicine; ATTEND Internal Medicine
PROC: 4A023N7 Measurement of Cardiac Sampling and Pressure, Left Heart, Percutaneous Approach (ICD-10-PCS; principal; 2020-09-11)
PROC: B2111ZZ Fluoroscopy of Multiple Coronary Arteries using Low Osmolar Contrast (ICD-10-PCS; 2020-09-11)
DX: I21.4 Non-ST elevation (NSTEMI) myocardial infarction (principal); I10 Essential (primary) hypertension; E78.5 Hyperlipidemia, unspecified; F17.200 Nicotine dependence, unspecified, uncomplicated; H61.20 Impacted cerumen, unspecified ear; H81.10 Benign paroxysmal vertigo, unspecified ear; I25.10 Atherosclerotic heart disease of native coronary artery without angina pectoris; R77.8 Other specified abnormalities of plasma proteins; Z79.82 Long term (current) use of aspirin; Z79.899 Other long term (current) drug therapy; Z20.822 Contact with and (suspected) exposure to COVID-19
CPT/HCPCS: 36415; 70450; 70551; 71045; 80048; 80053; 80061; 80076; 81003; 82947; 83690; 83735; 83880; 84100; 84443; 84484; 85025; 85610; 93005; 93306; 93458; 96361; 96372; 96374; 96375; 97112; 97116; 97161; 99285; C1760; C1893; G0378; J1200; J1644; J1650; J2250; J2270; J2405; J3010; J3360; J7030; J7040; U0003